=== PATIENT | female | born 1970 | race Two or more races ===

== ENCOUNTER 2017-02-06 13:13 | Emergency (ER) | payer SELFPAY ==
[~2017-02-06] VITALS: Ht 162.6 cm; Wt 83.0 kg
--- NOTE | 2017-02-06 13:18 | PHYS DOC ---
Adult General Chief Complaint Chief Complaint: nausea HPI HPI Patient is a 46 year old female who presents with feeling lightheaded , nausea and loose stools. She states that today she is hasn't quite felt right in her stomach's fellow upset and she's had 2-3 loose stools but no diarrhea. She denies any nausea or vomiting. She states she felt lightheaded and is concerned her blood pressures elevated since she's been out of her meds for the last 2 months. She denies any chest pain shortness of breath or abdominal pain. She states she had a floater in her right eye that lasted for about 5 minutes and then resolved. She states that she supposed be on one blood pressure medicine but can't remember the name of it. She denies any allergies medications. She denies any dysuria, or headache. Review of Systems Review of Systems Constitutional: Denies fever or chills [] Eyes: Denies change in visual acuity, redness, or eye pain [] HENT: Denies nasal congestion or sore throat [] Respiratory: Denies cough or shortness of breath [] Cardiovascular: No additional information not addressed in HPI [] GI: Denies abdominal pain, nausea, vomiting, bloody stools or diarrhea [] : Denies dysuria or hematuria [] Musculoskeletal: Denies back pain or joint pain [] Integument: Denies rash or skin lesions [] Neurologic: Denies headache, focal weakness or sensory changes [] Endocrine: Denies polyuria or polydipsia [] Physical Exam Physical Exam Constitutional: Well developed, well nourished, no acute distress, non-toxic appearance. [] HENT: Normocephalic, atraumatic, bilateral external ears normal, oropharynx moist, no oral exudates, nose normal. [] Eyes: PERRLA, EOMI, conjunctiva normal, no discharge. [] Neck: Normal range of motion, no tenderness, supple, no stridor. [] Cardiovascular:Heart rate regular rhythm, no murmur [] Lungs & Thorax: Bilateral breath sounds clear to auscultation [] Abdomen: Bowel sounds normal, soft, no tenderness, no masses, no pulsatile masses. [] Skin: Warm, dry, no erythema, no rash. [] Back: No tenderness, no CVA tenderness. [] Extremities: No tenderness, no cyanosis, no clubbing, ROM intact, no edema. [] Neurologic: Alert and oriented X 3, normal motor function, normal sensory function, no focal deficits noted. [] Psychologic: Affect normal, judgement normal, mood normal. [] EKG EKG EKG shows sinus rhythm rate of [address] elevations or T-wave inversions, normal axis, QTC 433 ms, as interpreted by me. Radiology/Procedures Radiology/Procedures [address] [address] IMAGING REPORT Signed PATIENT: ABRIL ANGEL ACCOUNT: [id number] : 1970 LOCATION: ER AGE: 46 SEX: F EXAM STATUS: REG ER ORD. PHYSICIAN: ABRAM TRIPP MD REASON: abd pain PROCEDURE: ACUTE ABDOMEN SERIES EXAM: Two view abdomen with one view chest HISTORY: Left abdominal pain and dizziness. COMPARISON: None. FINDINGS: A frontal view of the chest and supine/upright views of the abdomen are obtained. There are no confluent infiltrates. There is no pneumothorax or pleural effusion. The heart is not enlarged. There is no pneumoperitoneum. There are no distended small bowel loops or significant air-fluid levels. There is gas distally. The liver appears enlarged, with the right lobe extending to the right hemipelvis. IMPRESSION: 1. No confluent infiltrates. 2. No evidence of obstruction. Correlate for hepatomegaly. DICTATED AND SIGNED BY: ALEX ESPINAL MD DATE: 02/06/17 1755 CC: ABRAM TRIPP MD; ELIDA HENRIQUEZ DO ~ Impressions: Hypertension Transaminitis Course & Med Decision Making Course & Med Decision Making Pertinent Labs and Imaging studies reviewed. (See chart for details) EKG, acute abdominal series nonacute. She does have elevated LFTs and alkaline phosphatase which could be secondary to fatty liver. She really doesn't have abdominal pain. Her blood pressure is elevated in the 150s systolic neurosurgery vitals are within normal limits. She doesn't have a primary care physician currently but will give her a list and start her on Norvasc 5 mg for her blood pressure and have her follow-up with primary care physician. Return precautions given. She is agreeable plan and being discharged in stable condition at this time. Anders Disclaimer Dragon Disclaimer This chart was dictated in whole or in part using Voice Recognition software in a busy, high-work load, and often noisy Emergency Department environment. It may contain unintended and wholly unrecognized errors or omissions. Departure Departure: Impression: Primary Impression: Hypertension Disposition: HOME, SELF-CARE Condition: STABLE Referrals: ELIDA HENRIQUEZ DO (PCP) Patient Instructions: Hypertension Additional Instructions: You have elevated liver function tests which could be secondary to fatty liver disease. You will need to follow-up with her primary care physician have these repeated. Your being discharged home with a blood pressure medicine called Norvasc or amlodipine. Please follow the instructions on the bottle. I will provide you with a month's prescription and will you need to do every week is have your blood pressure checked at a pharmacy and keep a record of this to show your primary care physician. He started feeling lightheaded, dizzy, having chest discomfort, uncontrolled nausea vomiting, or other concerns please return back to the ER. Scripts Amlodipine Besylate (NORVASC) 5 Mg Tablet 1 TAB PO DAILY, #30 TAB 0 Refills Prov: ABRAM TRIPP MD 02/06/17 Problem Qualifiers Primary Impression: Hypertension Hypertension type: essential hypertension Qualified Codes: I10 - Essential ( primary) hypertension ABRAM TRIPP MD Feb 06, 2017 13:18
--- NOTE | 2017-02-06 14:08 | RAD ---
EXAM: Two view abdomen with one view chest HISTORY: Left abdominal pain and dizziness. COMPARISON: None. FINDINGS: A frontal view of the chest and supine/upright views of the abdomen are obtained. There are no confluent infiltrates. There is no pneumothorax or pleural effusion. The heart is not enlarged. There is no pneumoperitoneum. There are no distended small bowel loops or significant air-fluid levels. There is gas distally. The liver appears enlarged, with the right lobe extending to the right hemipelvis. IMPRESSION: 1. No confluent infiltrates. 2. No evidence of obstruction. Correlate for hepatomegaly.
[2017-02-06 14:23] LABS: BACTERIA,URINE MOD /HPF (0-FEW); BASO # 0.1 x10^3/uL (0.0-0.2); BASO % 1 % (0-3); BILIRUBIN,URINE NEG (NEG); CLARITY,URINE HAZY; COLOR,URINE YELLOW; EOS # 0.2 x10^3/uL (0.0-0.7); EOS % 2 % (0-3); GLUCOSE,URINE NEG (NEG); HEMATOCRIT 44.7 % (36.0-47.0); HEMOGLOBIN 15.4 g/dL (12.0-15.5); LYMPH # 2.9 x10^3/uL (1.0-4.8); LYMPH % 22 % (24-48); MEAN CORPUSCULAR HEMOGLOBIN 30 pg (25-35); MEAN CORPUSCULAR HGB CONC 35 g/dL (31-37); MEAN CORPUSCULAR VOLUME 86 fL (79-100); MONO # 0.7 x10^3/uL (0.0-1.1); MONO % 6 % (0-9); NEUT % 70 % (31-73); NITRITE,URINE POS (NEG); PLATELET COUNT 295 x10^3/uL (140-400); RED BLOOD COUNT 5.23 x10^6/uL (3.50-5.40); RED CELL DISTRIBUTION WIDTH 12.7 % (11.5-14.5); SQUAMOUS EPITHELIAL CELL,UR MOD /LPF; UROBILINOGEN,URINE 0.2 mg/dL (0.2 mg/dL); WBC,URINE RARE /HPF (0-4); WHITE BLOOD COUNT 12.9 x10^3/uL (4.0-11.0)
[2017-02-06 14:24] LABS: AMORPHOUS SEDIMENT,UR PRESENT /HPF
[2017-02-06 14:25] LABS: AMPHETAMINE/METHAMPHETAMINE NEG (NEG); BARBITURATES NEG (NEG); BENZODIAZEPINES NEG (NEG); CANNABINOIDS NEG (NEG); COCAINE NEG (NEG); METHADONE NEG (NEG); OPIATES NEG (NEG); PHENCYCLIDINE NEG (NEG); PREG TEST PT QUAL NEGATIVE (NEG)
[2017-02-06] MEDS ORDERED: IV NORMAL SALINE 1,000ML 1,000 ML IV SCH (14:30)
[2017-02-06 14:31] LABS: ALBUMIN 3.9 g/dL (3.4-5.0); CALCIUM 8.9 mg/dL (8.5-10.1); CREATININE 0.7 mg/dL (0.6-1.0); DIRECT BILIRUBIN 0.1 mg/dL (0.0-0.2); GFR 90.5; MAGNESIUM 1.8 mg/dL (1.8-2.4); POTASSIUM 4.1 mmol/L (3.5-5.1); TOTAL BILIRUBIN 0.3 mg/dL (0.2-1.0)
[2017-02-06] MEDS ORDERED: AMLO5TAB4 PO (15:23)
[2017-02-06 15:55] VITALS: BP 137/104
--- NOTE | 2017-02-06 16:12 | EKG ---
[address] [address] Test Date: 2017-02-06 Test Time: 14:18:41 Pat Name: ABRIL ANGEL Department: Room: Gender: F Pharmacy Billing Adjudicator: XENIA : 1970 Requested By: ABRAM TRIPP Order Number: [id number] Reading MD: Measurements Intervals [place] Rate: 95 P: 54 ME: 132 QRS: 53 QRSD: 76 T: 54 QT: 342 QTc: 433 Interpretive Statements SINUS RHYTHM QRS(T) CONTOUR ABNORMALITY CONSIDER ANTEROSEPTAL MYOCARDIAL DAMAGE CONSIDER INFERIOR MYOCARDIAL DAMAGE POSSIBLY ABNORMAL ECG RI6.01 No previous ECG available for comparison
== END 2017-02-06 16:02 | disposition home or self-care (01) ==
LOC: ER 13:13
DX: I10 Essential (primary) hypertension (principal)
CPT/HCPCS: 36415; 74022; 80048; 80076; 80307; 81001; 83690; 83735; 83880; 84443; 84703; 85025; 87086; 93005; 96360; 99285-25; G0479; J7030

== ENCOUNTER 2018-05-18 00:51 | Emergency (ER) | payer OTHER ==
[~2018-05-18] VITALS: Ht 162.6 cm; Wt 92.1 kg
[~2018-05-18 00:51] MED LIST: AMLO5TAB4 PO
[2018-05-18 01:30] LABS: BASO # 0.1 x10^3/uL (0.0-0.2); BASO % 1 % (0-3); EOS # 0.2 x10^3/uL (0.0-0.7); EOS % 2 % (0-3); HEMATOCRIT 41.3 % (36.0-47.0); HEMOGLOBIN 14.1 g/dL (12.0-15.5); LYMPH # 2.2 x10^3/uL (1.0-4.8); LYMPH % 22 % (24-48); MEAN CORPUSCULAR HEMOGLOBIN 30 pg (25-35); MEAN CORPUSCULAR HGB CONC 34 g/dL (31-37); MEAN CORPUSCULAR VOLUME 88 fL (79-100); MONO # 0.8 x10^3/uL (0.0-1.1); MONO % 8 % (0-9); NEUT # 6.7 x10^3uL (1.8-7.7); NEUT % 67 % (31-73); PLATELET COUNT 234 x10^3/uL (140-400); RED CELL DISTRIBUTION WIDTH 12.6 % (11.5-14.5); WHITE BLOOD COUNT 9.9 x10^3/uL (4.0-11.0)
[2018-05-18] MEDS ORDERED: ASPIRIN 81 MG TAB.CHEW PO ONE (01:30)
[2018-05-18] MEDS ORDERED: LORazepam 1 MG TABLET PO ONE (01:30)
[2018-05-18] MEDS ORDERED: ALPR0.5T PO (01:34)
[2018-05-18] MEDS ORDERED: AMOX1TAB58 PO (01:34)
[2018-05-18] MEDS ORDERED: ALBU2.5V8 INH (01:34)
[2018-05-18] MEDS ORDERED: PRED20TA PO (01:34)
[2018-05-18 01:35] LABS: CALCIUM 8.3 mg/dL (8.5-10.1); CREATININE 0.8 mg/dL (0.6-1.0); GFR 77.2; POTASSIUM 3.8 mmol/L (3.5-5.1)
--- NOTE | 2018-05-18 01:39 | PHYS DOC ---
Adult General Chief Complaint Chief Complaint chest pain HPI HPI Procedures old female who presented to the emergency department with chest pain stated that she's. She is going through a lot she had applied son at home and felt very stressed out and then she experienced chest pain described as a sharp pain across her chest feels very anxious no shortness of breath no palpitations no syncope no presyncope and experienced this pain before Review of Systems Review of Systems Constitutional: Denies fever or chills [] Eyes: Denies change in visual acuity, redness, or eye pain [] HENT: Denies nasal congestion or sore throat [] Respiratory: Denies cough or shortness of breath [] Cardiovascular: No additional information not addressed in HPI [] GI: Denies abdominal pain, nausea, vomiting, bloody stools or diarrhea [] : Denies dysuria or hematuria [] Musculoskeletal: Denies back pain or joint pain [] Integument: Denies rash or skin lesions [] Neurologic: Denies headache, focal weakness or sensory changes [] Endocrine: Denies polyuria or polydipsia [] All other systems were reviewed and found to be within normal limits, except as documented in this note. Current Medications Current Medications Current Medications Medications (Trade) Dose Ordered Sig/Lindsay Start Time Stop Time Status Last Admin Dose Admin Aspirin (Children'S Aspirin) 324 mg 1X ONCE 05/18/18 01:30 05/18/18 01:31 Lorazepam (Ativan) 1 mg 1X ONCE 05/18/18 01:30 05/18/18 01:31 Allergies Allergies Allergies Coded Allergies Type Severity Reaction Last Updated Verified No Known Drug Allergies 02/06/17 No Physical Exam Physical Exam Constitutional: Well developed, well nourished, no acute distress, non-toxic appearance. [] HENT: Normocephalic, atraumatic, bilateral external ears normal, oropharynx moist, no oral exudates, nose normal. [] Eyes: PERRLA, EOMI, conjunctiva normal, no discharge. [] Neck: Normal range of motion, no tenderness, supple, no stridor. [] Cardiovascular:Heart rate regular rhythm, no murmur [] Lungs & Thorax: Diminished breath sounds bilaterally with expiratory wheezing[] Abdomen: Bowel sounds normal, soft, no tenderness, no masses, no pulsatile masses. [] Skin: Warm, dry, no erythema, no rash. [] Back: No tenderness, no CVA tenderness. [] Extremities: No tenderness, no cyanosis, no clubbing, ROM intact, no edema. [] Neurologic: Alert and oriented X 3, normal motor function, normal sensory function, no focal deficits noted. [] Psychologic: Affect normal, judgement normal, mood normal. [] Current Patient Data Vital Signs Vital Signs Date Time Temp Pulse Resp B/P (MAP) Pulse Ox O2 Delivery O2 Flow Rate FiO2 05/18/18 00:51 98.9 99 18 97 Room Air Lab Results Laboratory Tests Test 05/18/18 01:10 White Blood Count 9.9 x10^3/uL (4.0-11.0) Red Blood Count 4.70 x10^6/uL (3.50-5.40) Hemoglobin 14.1 g/dL (12.0-15.5) Hematocrit 41.3 % (36.0-47.0) Mean Corpuscular Volume 88 fL (79-100) Mean Corpuscular Hemoglobin 30 pg (25-35) Mean Corpuscular Hemoglobin Concent 34 g/dL (31-37) Red Cell Distribution Width 12.6 % (11.5-14.5) Platelet Count 234 x10^3/uL (140-400) Neutrophils (%) (Auto) 67 % (31-73) Lymphocytes (%) (Auto) 22 % (24-48) L Monocytes (%) (Auto) 8 % (0-9) Eosinophils (%) (Auto) 2 % (0-3) Basophils (%) (Auto) 1 % (0-3) Neutrophils # (Auto) 6.7 x10^3uL (1.8-7.7) Lymphocytes # (Auto) 2.2 x10^3/uL (1.0-4.8) Monocytes # (Auto) 0.8 x10^3/uL (0.0-1.1) Eosinophils # (Auto) 0.2 x10^3/uL (0.0-0.7) Basophils # (Auto) 0.1 x10^3/uL (0.0-0.2) EKG EKG Normal sinus rhythm no acute ischemic changes[] Radiology/Procedures Radiology/Procedures [] Course & Med Decision Making Course & Med Decision Making Pertinent Labs and Imaging studies reviewed. (See chart for details) [] Final Impression Final Impression [] Problems: (1) Acute bronchitis Qualifiers: Qualified Codes: J20.9 - Acute bronchitis, unspecified (2) Anxiety Dragon Disclaimer Dragon Disclaimer This electronic medical record was generated, in whole or in part, using a voice recognition dictation system. JAMIE BLAKE MD May 18, 2018 01:39
[2018-05-18] MEDS ORDERED: ALBUTEROL SULFATE 2.5 MG/3 ML NEBU. NEB ONE (02:00)
[2018-05-18] MEDS ORDERED: methylPREDNISolone SOD SUCC PF 125 MG/2 ML VIAL. IV ONE (02:00)
[2018-05-18] MEDS ORDERED: LORazepam 2 MG/ML VIAL IV ONE (02:00)
[2018-05-18 02:25] VITALS: BP 171/108
--- NOTE | 2018-05-18 07:53 | RAD ---
EXAM: AP View of the chest DATE: 05/18/2018 12:32 AM INDICATION: Chest pain, short of air COMPARISON: 02/06/2017 FINDINGS: The heart is not enlarged. Mediastinal and hilar contours are normal. No focal parenchymal airspace opacity. No pleural effusion or pneumothorax. Left AC joint degenerative changes are seen. IMPRESSION: 1. No radiographic evidence for acute cardiopulmonary process. Electronically signed by: Nelson Corrigan MD (05/18/2018 7:49 AM) [facility]
--- NOTE | 2018-05-18 14:59 | EKG ---
[address] [address] Test Date: 2018-05-18 Test Time: 01:03:40 Pat Name: ABRIL ANGEL Department: Room: Gender: F Finishing Inspector: : 1970 Requested By: JAMIE BLAKE Order Number: [id number] Reading MD: Measurements Intervals [place] Rate: 100 P: 50 IA: 130 QRS: 57 QRSD: 78 T: 41 QT: 332 QTc: 431 Interpretive Statements SINUS RHYTHM QRS(T) CONTOUR ABNORMALITY CONSIDER ANTEROSEPTAL MYOCARDIAL DAMAGE POSSIBLY ABNORMAL ECG RI6.01 Unconfirmed report No previous ECG available for comparison
== END 2018-05-18 02:39 | disposition home or self-care (01) ==
LOC: ER 00:51
DX: J20.9 Acute bronchitis, unspecified (principal); F41.9 Anxiety disorder, unspecified
CPT/HCPCS: 36415; 71045; 80048; 84484; 85025; 85379; 93005; 94640; 96374; 99284; J2930; J7613

== ENCOUNTER 2020-07-14 07:39 | Emergency (ER) | payer SELFPAY ==
[~2020-07-14] VITALS: Ht 162.6 cm; Wt 59.0 kg
[~2020-07-14 07:39] MED LIST changes: +ALBU2.5V8 INH; +ALPR0.5T PO; +AMOX1TAB58 PO; +PRED20TA PO
[2020-07-14] MEDS ORDERED: ceFAZolin SODIUM 2 GM in IV DEXTROSE 5% 50 ML IV ONE (08:15)
[2020-07-14] MEDS ORDERED: DIPH,PERTUSS(ACELL),TET VAC/PF 0.5 ML SYRINGE. VAX IM ONE (08:15)
[2020-07-14 08:19] LABS: BASO # 0.1 x10^3/uL (0.0-0.2); BASO % 1 % (0-3); EOS # 0.1 x10^3/uL (0.0-0.7); EOS % 1 % (0-3); HEMATOCRIT 46.5 % (36.0-47.0); HEMOGLOBIN 15.1 g/dL (12.0-15.5); LYMPH # 1.6 x10^3/uL (1.0-4.8); LYMPH % 12 % (24-48); MEAN CORPUSCULAR HEMOGLOBIN 28 pg (25-35); MEAN CORPUSCULAR HGB CONC 33 g/dL (31-37); MEAN CORPUSCULAR VOLUME 87 fL (79-100); MONO # 0.8 x10^3/uL (0.0-1.1); MONO % 6 % (0-9); NEUT # 10.4 x10^3uL (1.8-7.7); NEUT % 80 % (31-73); PLATELET COUNT 238 x10^3/uL (140-400); RED BLOOD COUNT 5.34 x10^6/uL (3.50-5.40); RED CELL DISTRIBUTION WIDTH 14.1 % (11.5-14.5)
--- NOTE | 2020-07-14 08:19 | RAD ---
XR HAND_LEFT 3 VIEWS DATE: 07/14/2020 8:05 AM INDICATION: thumb and index finger crush injury COMPARISON: None. FINDINGS: Bones: Acute comminuted and displaced fracture of the first middle phalanx, without definite intra-ar ticular extension. Joints: The joint spaces are normal. Miscellaneous: None. IMPRESSION: Acute comminuted and displaced fracture of the first middle phalanx, without definite intra-articular extension. Electronically signed by: Hector Mi MD (07/14/2020 8:17 AM) [id number]
[2020-07-14] MEDS ORDERED: ceFAZolin SODIUM 1 GM VIAL ONE (08:24)
[2020-07-14] MEDS ORDERED: IV DEXTROSE 5% 50 ML ONE (08:24)
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
[2020-07-14 08:31] LABS: CALCIUM 8.6 mg/dL (8.5-10.1); CREATININE 0.6 mg/dL (0.6-1.0); GFR 106.7; POTASSIUM 3.8 mmol/L (3.5-5.1)
[2020-07-14 08:36] LABS: ALBUMIN 3.2 g/dL (3.4-5.0); ALBUMIN/GLOBULIN RATIO 0.7 (1.0-1.7); TOTAL BILIRUBIN 0.6 mg/dL (0.2-1.0); TOTAL PROTEIN 7.5 g/dL (6.4-8.2)
[2020-07-14 09:30] VITALS: BP 187/101
== END 2020-07-14 10:12 | disposition short-term general hospital (02) ==
LOC: ER 07:39
DX: S62.502A Fracture of unspecified phalanx of left thumb, initial encounter for closed fracture (principal); I10 Essential (primary) hypertension; Z98.890 Other specified postprocedural states; W54.0XXA Bitten by dog, initial encounter; Y93.89 Activity, other specified; Y92.89 Other specified places as the place of occurrence of the external cause; Y99.8 Other external cause status
CPT/HCPCS: 36415; 73130; 80053; 85025; 86140; 87040; 90471; 90715; 96365; 96375; 99285; J0690; J3010